=== PATIENT | female | born 1940 | race Caucasian/White ===

== ENCOUNTER 2017-06-10 13:45 | Emergency (ER) | payer OTHER ==
[~2017-06-10] VITALS: Ht 157.5 cm; Wt 81.8 kg
[~2017-06-10 13:45] MED LIST: ACET-2341 PO; ASPI-891 PO; CALC600T2 PO; GARL1250 PO; INSU100C3 SQ; INSU100C4 SQ; LOVA20TA3 PO; MULT1TAB70 PO; SULI200T4 PO; TRIPLE FLEX PO; UBID200C31 PO; VALS80TA2 PO
[2017-06-10 13:57] LABS: GLUCOSE,POINT OF CARE 127 MG/DL (70-110)
[2017-06-10 14:11] VITALS: BP 131/74
[2017-06-10] MEDS ORDERED: PERTUSS(ACELL),DIPH,TET VAC/PF 0.5 ML VIAL IM ONE (14:30)
[2017-06-10] MEDS ORDERED: BACITRACIN 0.9 GM PACKET OINTMENT TP ONE (14:30)
== END 2017-06-10 15:07 | disposition home or self-care (01) ==
LOC: EDBD 13:47 → EMS 13:47
DX: S81.852A Open bite, left lower leg, initial encounter (principal); E11.9 Type 2 diabetes mellitus without complications; I10 Essential (primary) hypertension; E78.00 Pure hypercholesterolemia, unspecified; Z79.4 Long term (current) use of insulin; W54.0XXA Bitten by dog, initial encounter; Y93.89 Activity, other specified; Y92.89 Other specified places as the place of occurrence of the external cause; Y99.8 Other external cause status
CPT/HCPCS: 82962; 90471; 90715; 99283